=== PATIENT | male | born 1955 | race African-American/Black ===

== ENCOUNTER 2016-08-30 08:02 | Emergency (ER) | payer OTHER | END 2016-08-30 10:04 | disposition home or self-care (01) | LOC: FER 08:02 | DX: S60.012A Contusion of left thumb without damage to nail, initial encounter (principal); I10 Essential (primary) hypertension; Z79.899 Other long term (current) drug therapy; Y93.89 Activity, other specified | CPT/HCPCS: 73130; 99283 ==

== ENCOUNTER 2020-04-07 16:06 | Emergency (ER) | payer MEDICARE, OTHER ==
[~2020-04-07 16:06] MED LIST: DICLOFENAC SODI75 MG PO; NORCO 5-325 TA1 EACH PO
[2020-04-07] MEDS ORDERED: MEDROL 4MG DOSEP4 MG PO (20:34)
[2020-04-07] MEDS ORDERED: CYCLOBENZAPRINE10 MG PO (20:34)
[2020-04-07] MEDS ORDERED: NORCO 5-325 TA1 EACH PO (20:34)
[2020-04-07] MEDS ORDERED: IBUPROFEN800 MG PO (20:34)
== END 2020-04-07 20:48 | disposition home or self-care (01) ==
LOC: FER 16:06
DX: M43.6 Torticollis (principal); I10 Essential (primary) hypertension; Z98.1 Arthrodesis status; Z98.890 Other specified postprocedural states; Z79.82 Long term (current) use of aspirin
CPT/HCPCS: 72050; 96372; J1100; J1885

== ENCOUNTER → 2021-06-27 | Day surgery (SDC) | payer OTHER ==
[~2021-06-27] VITALS: Ht 170.2 cm; Wt 88.9 kg
[~2021-06-27] MED LIST changes: +ASPIRIN EC81 MG PO; +AZELASTINE205.5 MCG/; +CYCLOBENZAPRINE10 MG PO; +CYCLOSPORINE OP; +DORZOLAMIDE-TIM10 ML OP; +GABAPENTIN600 MG PO; +GAS RELIEF80 MG PO; +HCTZ25 MG PO; +IBUPROFEN800 MG PO; +LEXAPRO20 MG PO; +LIPITOR40 MG PO; +LOVAZA1 GM PO; +MEDROL 4MG DOSEP4 MG PO; +POTASSIUM20 MEQ/11 PO; +SINGULAIR10 MG PO; +TRAZODONE 100M100 MG PO; +ZYRTEC10 M3 PO
== END | disposition home or self-care (01) ==
LOC: FAS 11:25
DX: K62.89 Other specified diseases of anus and rectum (principal); D12.5 Benign neoplasm of sigmoid colon; K64.0 First degree hemorrhoids; Z79.82 Long term (current) use of aspirin; Z87.891 Personal history of nicotine dependence; Z20.822 Contact with and (suspected) exposure to COVID-19
CPT/HCPCS: J2704; J7120